=== PATIENT | female | born 1965 | race Caucasian/White ===

== ENCOUNTER 2016-09-22 15:55 | Emergency (ER) | payer OTHER ==
[~2016-09-22] VITALS: Ht 157.5 cm; Wt 59.0 kg
[2016-09-22 15:56] VITALS: Ht 157.5 cm; Wt 59.0 kg
[2016-09-22] MEDS ORDERED: AMOX1TAB10 PO (16:22)
[2016-09-22] MEDS ORDERED: OFLO5DRO7 RIGHT EAR (16:22)
[2016-09-22] MEDS ORDERED: GUAI118L22 PO (16:22)
--- NOTE | 2016-09-22 17:19 | ERD ---
ER Documentation Chief Complaint Date/Time DATE: 09/22/16 TIME: 17:17 Chief Complaint RT EAR PAIN W/ DRAINAGE SINCE LAST NIGHT. HPI 51-year-old female has had a cough for the past 2 days as well as right ear pain with drainage that started last night. Patient describes achy pain in the inner ear on the right side, nonradiating. She denies any fevers or chills. ROS All systems reviewed and are negative except as per history of present illness. Medications Home Meds Active Scripts Guaifenesin/Codeine Phosphate (CHERATUSSIN AC SYRUP) 118 Ml Liquid, 5 ML PO Q4H Y for COUGH, #118 ML Prov:ARLENE CRAVEN PA-C 09/22/16 Ofloxacin Otic (Ofloxacin Otic) 5 Ml Drops, 5 DROP RIGHT EAR BID for 10 Days, # 1 BOTTLE Prov:ARLENE CRAVEN PA-C 09/22/16 Amoxicillin/Potassium Clav (Amox-Clav 875-125 mg Tablet) 875-125 mg Tab, 1 TAB PO BID for 7 Days, #14 TAB Prov:ARLENE CRAVEN PA-C 09/22/16 Allergies Allergies: Coded Allergies: No Known Allergy (Unverified , 04/08/14) PMhx/Soc Medical and Surgical Hx: pt denies Medical Hx, pt denies Surgical Hx Hx Alcohol Use: No Hx Substance Use: No Hx Tobacco Use: No Smoking Status: Never smoker Physical Exam Vitals Vital Signs Date Time Temp Pulse Resp B/P Pulse Ox O2 Delivery O2 Flow Rate FiO2 09/22/16 15:56 98.7 74 20 139/74 98 Physical Exam General: Well-developed, well-nourished. The patient appears in no acute distress. HEENT: Head is normocephalic, atraumatic. No scleral icterus. Pupils are equal , round, and reactive. Oral mucous membranes are moist. No pharyngeal erythema. TM on the right side is obscured, the ear canal is edematous, there is drainage, no otorrhea. Left ear is unremarkable Neck: Supple. Nontender. Mastoids are nontender. Lungs: Clear to auscultation. Normal air movement. Heart: Regular rate and rhythm. S1 and S2 are normal. No murmurs, gallops, or rubs. Abdomen: Soft, nontender, nondistended. Bowel sounds are normoactive. Extremities: No clubbing or cyanosis. Normal pulses. Moving extremities x 4. No weakness. Neurologic: Alert and oriented 3. No focal deficits. Skin: Normal turgor. No rash or lesions. Procedures/MDM MDM: The patient is a 51-year-old female who comes in with an acute upper respiratory infection, presumed viral, otitis media with perforation. The patient has a differential diagnosis of a viral upper respiratory infection, bacterial upper respiratory infection, bronchitis, pneumonia, pharyngitis, laryngitis, epiglottitis, croup, pneumonia. Patient has a normal pulmonary examination, clear breath sounds, normal pulse oximetry, with no corrective measures needed at this time. Fluids, rest, antipyretics were encouraged. Departure Diagnosis: Primary Impression: Otitis media Additional Impression: Cough Condition: Good Patient Instructions: Otitis Media, Abx Tx (Adult), Uri, Viral, No Abx (Adult) Additional Instructions: Llame al doctor MAANA y slim shaun FLAVIO PARA DENTRO DE 1-2 HARPER.Dgale a la secretaria que nosotros le instruimos hacer esta flavio.Avise o llame si rodriguez condicin se empeora antes de la flavio. Regresa aqui si peor o no mejor. ARLENE CRAVEN PA-C September 22, 2016 17:19
== END 2016-09-22 16:28 | disposition home or self-care (01) ==
LOC: FTE 15:55
DX: H66.91 Otitis media, unspecified, right ear (principal); R05 Cough
CPT/HCPCS: 99283

== ENCOUNTER 2016-10-11 19:17 | Emergency (ER) | payer SELFPAY ==
[~2016-10-11 19:17] MED LIST: AMOX1TAB10 PO; GUAI118L22 PO; OFLO5DRO7 RIGHT EAR
[2016-10-12] MEDS ORDERED: SODI126M NASAL (14:22)
[2016-10-12] MEDS ORDERED: FLUT9.9S NASAL (14:22)
== END 2016-10-11 20:36 | disposition left against medical advice (07) ==
LOC: E/R 19:17
DX: Z53.21 Procedure and treatment not carried out due to patient leaving prior to being seen by health care provider (principal)

== ENCOUNTER 2016-10-12 13:14 | Emergency (ER) | payer OTHER ==
[~2016-10-12] VITALS: Wt 63.0 kg
[2016-10-12] MEDS ORDERED: SODI126M NASAL (14:22)
[2016-10-12] MEDS ORDERED: FLUT9.9S NASAL (14:22)
--- NOTE | 2016-10-12 14:32 | ERD ---
ER Documentation Chief Complaint Date/Time DATE: 10/12/16 TIME: 14:25 Chief Complaint R EAR PAIN , TREATED FOR SAME 3 WKS AGO, NO COUGH OR FEVERS NOTED HPI 51-year-old female complaining of right ear problem 3 weeks. Patient was seen here initially on 09/22/2016 for ear pain and viral upper respiratory symptoms. She was given prescription of Augmentin and ofloxacin otic. Patient stated that her ear pain has improved, however she still has decreased hearing in the right ear along with tinnitus. Denies nasal congestion. Denies ear drainage. Denies fever or chills. Denies jaw pain. ROS All systems reviewed and are negative except as per history of present illness. Medications Home Meds Active Scripts Fluticasone Propionate (Flonase Allergy Relief) 9.9 Ml [place].susp, 1 SPRAY NASAL DAILY, #1 BOTTLE TO EACH NOSTRIL Prov:LESLY SALAS. SAFETY AND OCCUPATIONAL HEALTH MANAGER 10/12/16 Sodium Chloride (Saline Nasal Mist) 126 Ml Mist, 2 SPRAY NASAL Q2H Y for NASAL CONGESTION, #1 BOTTLE Prov:LESLY SALAS SAFETY AND OCCUPATIONAL HEALTH MANAGER 10/12/16 Guaifenesin/Codeine Phosphate (CHERATUSSIN AC SYRUP) 118 Ml Liquid, 5 ML PO Q4H Y for COUGH, #118 ML Prov:ARLENE CRAVEN PA-C 09/22/16 Ofloxacin Otic (Ofloxacin Otic) 5 Ml Drops, 5 DROP RIGHT EAR BID for 10 Days, # 1 BOTTLE Prov:ARLENE CRAVEN PA-C 09/22/16 Amoxicillin/Potassium Clav (Amox-Clav 875-125 mg Tablet) 875-125 mg Tab, 1 TAB PO BID for 7 Days, #14 TAB Prov:ARLENE CRAVEN PA-C 09/22/16 Allergies Allergies: Coded Allergies: No Known Allergy (Unverified , 04/08/14) PMhx/Soc Medical and Surgical Hx: pt denies Medical Hx Hx Alcohol Use: No Hx Substance Use: No Hx Tobacco Use: No Physical Exam Vitals Vital Signs Date Time Temp Pulse Resp B/P Pulse Ox O2 Delivery O2 Flow Rate FiO2 10/12/16 13:18 97.6 77 21 174/84 98 Physical Exam General: Well-developed, well-nourished, conscious and coherent, in no distress Skin: Warm and dry without rash, good texture and turgor Head: Normocephalic without evidence of trauma Eyes: Sclera and conjunctivae normal; pupils equal, round, and reactive to light; extraocular movements are intact Ears: Left ear canal is large amount cerumen, unable to visualize TM on the left. Right canal is patent, tympanic membrane dull in appearance. Nose/Face: Nasal mucosa swollen, without rhinorrhea. Mouth/throat: Mucous membranes are moist. Posterior pharynx clear without erythema or exudates Neck: Supple without meningismus or adenopathy. Right sternocleidomastoid tenderness on palpation. Carotids are equal. Trachea midline. No bruits or JVD Chest: Normal AP diameter. Good expansion without retractions. Nontender. Lungs are clear to auscultate bilaterally with good tidal volume Heart: Regular rate and rhythm. No murmur, rub, or gallops heard Extremities: Full range of motion. Good strength bilaterally. No clubbing, cyanosis, or edema. Peripheral pulses are intact. Sensation intact Neuro: Alert and oriented 4, GCS 15. Cranial nerves grossly intact. Motor and sensory exams nonfocal. Moves all extremities. Speech clear. Gait normal Procedures/MDM Well-appearing 51-year-old female presented ED with continued decreased hearing in the right ear after antibiotic treatment for acute otitis media and otitis externa. No sign of suppurative acute otitis media or otitis externa remains. Patient symptoms exam findings consistent with serous otitis media secondary to eustachian tube dysfunction due to nasal congestion. Patient appears well, stable for discharge and outpatient management. Medical decision making shared with patient and family. Education provided to patient and family. Patient and family expressed understanding of the plan. Medications on discharge: Saline nasal spray, Flonase. Follow-up: Primary care provider in 2-3 days or return to ED if worse. Departure Diagnosis: Primary Impression: Serous otitis media Laterality: right Chronicity: acute Recurrence: not specified as recurrent Qualified Code: H65.01 - Right acute serous otitis media, recurrence not specified Condition: Good Patient Instructions: Serous Otitis Media Without Infection [Child] Referrals: COMMUNITY CLINICS YOU HAVE RECEIVED A MEDICAL SCREENING EXAM AND THE RESULTS INDICATE THAT YOU DO NOT HAVE A CONDITION THAT REQUIRES URGENT TREATMENT IN THE EMERGENCY DEPARTMENT. FURTHER EVALUATION AND TREATMENT OF YOUR CONDITION CAN WAIT UNTIL YOU ARE SEEN IN YOUR DOCTORS OFFICE WITHIN THE NEXT 1-2 DAYS. IT IS YOUR RESPONSIBILITY TO MAKE AN APPOINTMENT FOR FOLOW-UP CARE. IF YOU HAVE A PRIMARY DOCTOR --you should call your primary doctor and schedule an appointment IF YOU DO NOT HAVE A PRIMARY DOCTOR YOU CAN CALL OUR PHYSICIAN REFERRAL HOTLINE AT IF YOU CAN NOT AFFORD TO SEE A PHYSICIAN YOU CAN CHOSE FROM THE FOLLOWING [facility] [address] [facility]. [facility] [address] [facility]. [facility] [address] [facility] [address] [facility]. [facility] [address] [facility]. [facility]. [address] Additional Instructions: Call your primary care doctor TOMORROW for an appointment during the next 2-3 days.See the doctor sooner or return here if your condition worsens before your appointment time. LESLY SALAS NP Oct 12, 2016 14:31
== END 2016-10-12 14:24 | disposition home or self-care (01) ==
LOC: E/R 13:14
DX: H65.01 Acute serous otitis media, right ear (principal)
CPT/HCPCS: 99283

== ENCOUNTER 2017-08-08 08:04 | Emergency (ER) | END 2017-08-08 10:01 | disposition home or self-care (01) ==